=== PATIENT | female | born 1985 | race Two or more races ===

== ENCOUNTER 2018-03-05 07:21 | Inpatient (IN) | payer OTHER ==
[~2018-03-05] VITALS: Ht 162.6 cm; Wt 3.6 kg
== END 2018-03-08 16:55 | DRG 788 ==
LOC: LDR 07:21 → OB/GYN 07:21 → O/R 13:30 → OB/GYN 16:16
PROVIDERS: Obstetrics & Gynecology
PROC: 4A1HXCZ Monitoring of Products of Conception, Cardiac Rate, External Approach (ICD-10-PCS; 2018-03-05)
PROC: 10D00Z1 Extraction of Products of Conception, Low, Open Approach (ICD-10-PCS; principal; 2018-03-05 14:45)
DX: O34.211 Maternal care for low transverse scar from previous cesarean delivery (principal); O75.82 Onset (spontaneous) of labor after 37 completed weeks of gestation but before 39 completed weeks gestation, with delivery by (planned) cesarean section; Z3A.37 37 weeks gestation of pregnancy; Z37.0 Single live birth